=== PATIENT | male | born 1965 | race Caucasian/White ===

== ENCOUNTER 2019-06-27 12:42 | Day surgery (SDC) | payer OTHER ==
[~2019-06-27] VITALS: Ht 182.9 cm; Wt 127.0 kg
[~2019-06-27 12:42] MED LIST: NEXIUM 20MG20 MG PO; ULTRAM 50MG TAB50 MG PO
[2019-06-27] MEDS ORDERED: EPA FISH OIL1 SGL PO (13:00)
[2019-06-27] MEDS ORDERED: VITAMIN D31000 I1 PO (13:01)
[2019-06-27] MEDS ORDERED: PRILOSEC 20MG20 MG PO (13:01)
[2019-06-27] MEDS ORDERED: LOPID 600M600 MG/TAB PO (13:01)
[2019-06-27 13:02] VITALS: BP 140/92; PULSE 59; TEMP 98
[2019-06-27 14:05] VITALS: BP 101/83; PULSE 62; TEMP 97.6
--- NOTE | 2019-06-27 14:05 | NUR ---
The patient arrived back to [facility] at this time. The patient appears alert and oriented and denies any pain or nausea at this time. Post operateive vital signs were started at this time. The patient requests to try some cranberry juice and a muffin at this time. Call light is within reach. Will continue to monitor the patient.
[2019-06-27 14:20] VITALS: BP 110/81; PULSE 59
--- NOTE | 2019-06-27 14:20 | NUR ---
The patient has finished his food and drink and appeared to tolerate both well. The patient denies wanting anything further to eat or drink at this time. Vital signs appear stable. Will continuen to monitor the patient.
[2019-06-27 14:35] VITALS: BP 119/79; PULSE 58
--- NOTE | 2019-06-27 14:37 | NUR ---
The patient is sitting up in the recliner and appears to be resting comfortably at this time. The patient denies wanting anything further to eat or drink at this time. The patient has given his cellphone per his request. Will continue to monitor the patient.
[2019-06-27 14:50] VITALS: BP 120/79; PULSE 51
--- NOTE | 2019-06-27 14:50 | NUR ---
The patient voices a desire to be discharged home. The patient's IV to his right hand was removed and a pressure dressing was applied to the site. The nurse instructed the patient to get dressed and notify the staff when he is ready to be escorted out.
--- NOTE | 2019-06-27 15:05 | NUR ---
Discharge instructions were reviewed with the patient at this time. He verbalized understanding and has no questions for the nurse at this time. The patient has spoke with Dr. Berrios regarding the findings of the procedure and is ready to be escorted out.
--- NOTE | 2019-06-27 15:10 | NUR ---
The patient was escorted out via wheelchair to a private vehicle by GINA Sarmiento. The patient's belongings and discharge paperwork were sent with him. The patient's is present to drive him home.
== END 2019-06-27 15:10 | disposition home or self-care (01) ==
LOC: SDCO 12:42
DX: Z12.11 Encounter for screening for malignant neoplasm of colon (principal); D12.5 Benign neoplasm of sigmoid colon; D12.0 Benign neoplasm of cecum; G47.30 Sleep apnea, unspecified; M19.90 Unspecified osteoarthritis, unspecified site; G89.29 Other chronic pain; Z86.010 Personal history of colon polyps; Z87.891 Personal history of nicotine dependence
CPT/HCPCS: J2704; J7030

== ENCOUNTER 2021-02-16 14:47 | Inpatient (IN) | payer OTHER ==
[~2021-02-16] VITALS: Ht 182.9 cm; Wt 127.0 kg
[~2021-02-16 14:47] MED LIST changes: +EPA FISH OIL1 SGL PO; +LOPID 600M600 MG/TAB PO; +PRILOSEC 20MG20 MG PO; +VITAMIN D31000 I1 PO
[2021-02-16 16:32] LABS: BASO % 0.3 % (0.0-2.0); GRAN # 3.1 (1.4-6.5); GRAN % 83.2 % (42.2-75.2); HEMATOCRIT 48.3 % (42.0-52.0); HEMOGLOBIN 16.7 g/dl (13.5-18.0); LYMPH # 0.5 (1.2-3.4); LYMPH % 12.4 % (20.0-51.0); MEAN CELL VOLUME 90 fl (80.0-100.0); MEAN CORPUSCULAR HEMOGLOBIN 31 pg (27.0-31.0); MEAN CORPUSCULAR HGB CONC 35 g/dl (33.0-37.0); MEAN PLATELET VOLUME 12.1 fl (7.4-10.4); MONO # 0.1 (0.1-0.6); MONO % 3.8 % (1.7-9.3); PLATELET COUNT 93 K/mm3 (130-400); RED BLOOD COUNT 5.38 M/mm3 (4.20-5.60); REDCELL DISTRIBUTION WIDTH-CV 13.7 % (11.5-14.5)
[2021-02-16 16:43] LABS: ALBUMIN 3.9 gm/dL (3.5-5.0); C-REACTIVE PROTEIN 2.7 mg/dL (0.0-0.9); CALCIUM 7.8 mg/dL (8.4-10.2); CREATININE, serum 0.99 (0.66-1.25); POTASSIUM 3.5 mmol/L (3.4-5.0); TOTAL PROTEIN 7.2 gm/dL (6.4-8.2)
[2021-02-16 19:32] LABS: INR 1.1 (0.8-3.0); PROTHROMBIN TIME 12.2 SECONDS (9.7-12.8)
[2021-02-16 19:35] LABS: PARTIAL THROMBOPLASTIN TIME 44.2 SECONDS (26.0-37.0)
[2021-02-16 20:10] VITALS: BP 121/72; PULSE 63; TEMP 98.2
[2021-02-16 21:33] LABS: COLLECTION METHOD CLEAN CATCH
[2021-02-16 21:40] LABS: MUCOUS Present /lpf; PH 5 (5-8); SQUAMOUS EPITHELIAL 0-2 /hpf; URINE APPEARANCE Clear; URINE BACTERIA None Seen /hpf; URINE BILIRUBIN Negative (NEGATIVE); URINE BLOOD Negative (NEGATIVE); URINE COLOR Yellow; URINE GLUCOSE Negative (NEGATIVE); URINE KETONE Negative (NEGATIVE); URINE LEUKOCYTE ESTERASE Negative (NEGATIVE); URINE NITRATE Negative (NEGATIVE); URINE PROTEIN(semi-quant) Negative (NEGATIVE); URINE RBC 0-2 /hpf; URINE UROBILINOGEN Negative (NEGATIVE)
[2021-02-16] MEDS ORDERED: NEXIUM 40MG40 MG PO (22:29)
[2021-02-16] MEDS ORDERED: VITAMIN D31000 I1 PO (22:33)
[2021-02-16] MEDS ORDERED: MOBIC15 MG PO (22:34)
--- NOTE | 2021-02-16 22:42 | NUR ---
PT ARRIVED ON UNIT AROUND 2014
[2021-02-16 22:48] VITALS: BP 113/64; PULSE 83; TEMP 99.3
[2021-02-16 23:16] LABS: ARTERIAL BLD GAS O2 SATURATION 95.8 % (92-100); ARTERIAL BLD GAS TCO2 CT 22.8; ARTERIAL BLOOD GAS BASE EXCESS -1.7 (-2-2); ARTERIAL BLOOD GAS HCO3 21.7 meq/L (22-26); ARTERIAL BLOOD GAS PCO2 33.8 mmHg (35-45); ARTERIAL BLOOD GAS pH 7.43 (7.35-7.45)
--- NOTE | 2021-02-17 01:16 | NUR ---
EVENING MEDICATIONS GIVEN. INTAKE ASSESSMENTS COMPLETED. PT LUNGS SOUND DIMINISHED. PT STATES HIS ONLY PAIN IS A HEADACHE. WILL CONTINUE TO MONITOR.
[2021-02-17 03:42] VITALS: BP 133/83; PULSE 69; TEMP 100.1
--- NOTE | 2021-02-17 05:44 | NUR ---
PT WAS ABLE TO GET SOME REST THROUGHOUT THE NIGHT. DENIES ANY NEEDS AT THIS TIME.
[2021-02-17 08:33] LABS: HEMATOCRIT 44.6 % (42.0-52.0); HEMOGLOBIN 15.6 g/dl (13.5-18.0); MEAN CELL VOLUME 89 fl (80.0-100.0); MEAN CORPUSCULAR HEMOGLOBIN 31 pg (27.0-31.0); MEAN CORPUSCULAR HGB CONC 35 g/dl (33.0-37.0); MEAN PLATELET VOLUME 11.3 fl (7.4-10.4); PLATELET COUNT 87 K/mm3 (130-400); RED BLOOD COUNT 5.02 M/mm3 (4.20-5.60); REDCELL DISTRIBUTION WIDTH-CV 13.4 % (11.5-14.5)
[2021-02-17 08:48] LABS: ALBUMIN 3.5 gm/dL (3.5-5.0); BILIRUBIN,TOTAL 0.7 mg/dL (0.0-1.0); CALCIUM 7.8 mg/dL (8.4-10.2); CREATININE, serum 0.71 (0.66-1.25); POTASSIUM 4.3 mmol/L (3.4-5.0); TOTAL PROTEIN 6.5 gm/dL (6.4-8.2)
[2021-02-17 09:02] VITALS: BP 118/72; PULSE 78; TEMP 102.8
[2021-02-17 09:05] LABS: BAND 17 % (0-10); LYMPHOCYTE 11 % (20.0-51.0); NEUTROPHILS 70 % (42.0-75.2); PLATELET ESTIMATE DECREASED (NORMAL)
--- NOTE | 2021-02-17 10:25 | NUR ---
Patient resting in bed upon entering room. Only complaint was that the food was horrible, "too salty". Patient requested a list of all the medications he is taking. This RN will provide this next time I am in the room.
--- NOTE | 2021-02-17 10:29 | NUR ---
Patient running a fever of 102.8, given PRN tylenol for relief.
--- NOTE | 2021-02-17 12:17 | NUR ---
Sw spoke with the pt via phone due to covid-19. The pt states his preference to return home with his spouse (bonifacio ph#[phone] or [phone]) once medically stable. The pt is independent on all ADLs and uses a CPAP. The pt PCP is the [place] and gets in [facility] [place]. The pt does not have DPOA-HC and he has request one be done. No other needs stated at this time. Sw to await further recommendations and follow up as needed. D/c: Home with spouse
[2021-02-17 12:38] VITALS: BP 109/62; PULSE 68; TEMP 98.6
--- NOTE | 2021-02-17 13:09 | NUR ---
Patient completed a durable power of civil litigation attorney for health care and worker placed a copy on patient's chart.
[2021-02-17 17:57] VITALS: BP 112/71; PULSE 68; TEMP 101
[2021-02-17 20:24] VITALS: BP 114/68; PULSE 63; TEMP 99.6
[2021-02-18] VITALS (7 sets, daily range): BP systolic 90–129; BP diastolic 51–78; PULSE 61–77; TEMP 97.7–103.3
--- NOTE | 2021-02-18 01:03 | NUR ---
PT TEMP. ELEVATED, PT DIAPHORETIC, DENIES CHILLS, MEDICATION ADMINISTERED ORDERED. CALL LIGHT WITHIN REACH.
--- NOTE | 2021-02-18 05:51 | NUR ---
PT HAD UNEVENTFUL NIGHT, PT TEMPERATURE WNL, 02 AT 7.5 HIGH FLOW NC SATURATING 93 TO 94 PERCENT. PT STATES WHEN HE TAKES A DEEP BREATHE OUT IT IS PAIN AROUND THORACIC REGION, PT RATES PAIN 3/10. COUGH REMAINS DRY AND MINIMAL, 0-2 COUGHS PER HOUR, THIS NURSE REVIEWED IMPORTANCE OF POSITIONING, PT VERBALIZES UNDERSTANDING. BS WNL.MEDICATIONS ADMINISTERED ORDERED. PT EXPRESSES NO ADDITONAL NEEDS AT THIS TIME. CALL LIGHT WITHIN REACH.
[2021-02-18 06:59] LABS: ALBUMIN 3.5 gm/dL (3.5-5.0); BILIRUBIN,TOTAL 0.7 mg/dL (0.0-1.0); C-REACTIVE PROTEIN 4.6 mg/dL (0.0-0.9); CALCIUM 7.9 mg/dL (8.4-10.2); CREATININE, serum 0.73 (0.66-1.25); POTASSIUM 3.8 mmol/L (3.4-5.0); TOTAL PROTEIN 6.6 gm/dL (6.4-8.2)
--- NOTE | 2021-02-18 09:03 | NUR ---
Patient running a fever at 103.3, given PRN motrin to attempt to bring it down. Thermometer was placed in the room to keep better track of temps. Patient's potassium came back at 3.8, replaced per protocol.
[2021-02-18 12:22] LABS: ARTERIAL BLD GAS O2 SATURATION 96.3 % (92-100); ARTERIAL BLD GAS TCO2 CT 21.2; ARTERIAL BLOOD GAS BASE EXCESS -1.4 (-2-2); ARTERIAL BLOOD GAS HCO3 20.3 meq/L (22-26); ARTERIAL BLOOD GAS PCO2 27.7 mmHg (35-45); ARTERIAL BLOOD GAS PO2 80.3 mmHg (80-100); ARTERIAL BLOOD GAS pH 7.48 (7.35-7.45)
[2021-02-18 13:12] LABS: HEMATOCRIT 47.7 % (42.0-52.0); HEMOGLOBIN 16.3 g/dl (13.5-18.0); MEAN CELL VOLUME 91 fl (80.0-100.0); MEAN CORPUSCULAR HEMOGLOBIN 31 pg (27.0-31.0); MEAN CORPUSCULAR HGB CONC 34 g/dl (33.0-37.0); MEAN PLATELET VOLUME 11.5 fl (7.4-10.4); PLATELET COUNT 101 K/mm3 (130-400); RED BLOOD COUNT 5.27 M/mm3 (4.20-5.60); REDCELL DISTRIBUTION WIDTH-CV 13.6 % (11.5-14.5)
[2021-02-18 13:43] LABS: BAND 26 % (0-10); EOSINOPHIL 1 % (0-4); LYMPHOCYTE 7 % (20.0-51.0); NEUTROPHILS 62 % (42.0-75.2)
[2021-02-18 13:45] LABS: PLATELET ESTIMATE DECREASED (NORMAL)
--- NOTE | 2021-02-18 15:34 | NUR ---
Patient has done okay today. Telemetry has called multiple times notifying this RN that the patient's leads were off. Patient has been pulling them off to sleep on his stomach, stating, "I just want to sleep on my stomach and not be bothered by the box." Patient was educate on the importance of telemetry. Patient currently on 10L of O2 via [facility].
--- NOTE | 2021-02-18 18:10 | NUR ---
Patient last temp was good, 97.8. Patient not c/o any pain. All questions answered.
[2021-02-19] VITALS (7 sets, daily range): BP systolic 98–128; BP diastolic 63–80; PULSE 50–61; TEMP 97.7–98.5
[2021-02-19 05:21] LABS: ARTERIAL BLD GAS O2 SATURATION 93.5 % (92-100); ARTERIAL BLD GAS TCO2 CT 22.6; ARTERIAL BLOOD GAS HCO3 21.7 meq/L (22-26); ARTERIAL BLOOD GAS PCO2 31.1 mmHg (35-45); ARTERIAL BLOOD GAS PO2 64.9 mmHg (80-100); ARTERIAL BLOOD GAS pH 7.46 (7.35-7.45)
--- NOTE | 2021-02-19 05:25 | NUR ---
PT REMAINED AFEBRILE OVERNIGHT, 02 10L HIGH FLOW NC SATURATING 94-95 PERCENT. PT DENIES PAIN,N,V,D. MEDICATIONS ADMINISTERED ORDERED. PT EXPRESSES NO ADDITIONAL NEEDS AT THIS TIME. CALL LIGHT WITHIN REACH.
[2021-02-19 10:12] LABS: GRAN # 2.7 (1.4-6.5); GRAN % 82.7 % (42.2-75.2); HEMATOCRIT 45.4 % (42.0-52.0); HEMOGLOBIN 15.4 g/dl (13.5-18.0); LYMPH # 0.4 (1.2-3.4); LYMPH % 13.3 % (20.0-51.0); MEAN CELL VOLUME 92 fl (80.0-100.0); MEAN CORPUSCULAR HEMOGLOBIN 31 pg (27.0-31.0); MEAN CORPUSCULAR HGB CONC 34 g/dl (33.0-37.0); MEAN PLATELET VOLUME 10.9 fl (7.4-10.4); MONO # 0.1 (0.1-0.6); MONO % 3.7 % (1.7-9.3); PLATELET COUNT 89 K/mm3 (130-400); RED BLOOD COUNT 4.94 M/mm3 (4.20-5.60); REDCELL DISTRIBUTION WIDTH-CV 13.7 % (11.5-14.5)
[2021-02-19 10:22] LABS: C-REACTIVE PROTEIN 6.6 mg/dL (0.0-0.9); CALCIUM 7.8 mg/dL (8.4-10.2); CREATININE, serum 0.69 (0.66-1.25); POTASSIUM 3.6 mmol/L (3.4-5.0)
[2021-02-20] VITALS: BP 121/80; PULSE 53; TEMP 98
[2021-02-20 04:00] VITALS: BP 113/75; PULSE 56; TEMP 97.8
[2021-02-20 07:35] LABS: BASO % 0.2 % (0.0-2.0); GRAN # 3.7 (1.4-6.5); GRAN % 82.1 % (42.2-75.2); HEMATOCRIT 45.9 % (42.0-52.0); HEMOGLOBIN 15.5 g/dl (13.5-18.0); LYMPH # 0.6 (1.2-3.4); MEAN CELL VOLUME 91 fl (80.0-100.0); MEAN CORPUSCULAR HEMOGLOBIN 31 pg (27.0-31.0); MEAN CORPUSCULAR HGB CONC 34 g/dl (33.0-37.0); MEAN PLATELET VOLUME 11.1 fl (7.4-10.4); MONO # 0.2 (0.1-0.6); PLATELET COUNT 138 K/mm3 (130-400); RED BLOOD COUNT 5.05 M/mm3 (4.20-5.60); REDCELL DISTRIBUTION WIDTH-CV 13.6 % (11.5-14.5)
[2021-02-20 07:48] LABS: ALBUMIN 3.2 gm/dL (3.5-5.0); BILIRUBIN,TOTAL 0.7 mg/dL (0.0-1.0); C-REACTIVE PROTEIN 4.1 mg/dL (0.0-0.9); CALCIUM 8.1 mg/dL (8.4-10.2); CREATININE, serum 0.65 (0.66-1.25); TOTAL PROTEIN 6.2 gm/dL (6.4-8.2)
[2021-02-20 08:30] VITALS: BP 110/74; PULSE 55; TEMP 97.6
[2021-02-20 11:19] VITALS: BP 107/61; PULSE 57; TEMP 97.9
[2021-02-20 16:00] VITALS: BP 120/80; PULSE 62; TEMP 97.9
[2021-02-20 20:00] VITALS: BP 96/54; PULSE 60; TEMP 97.9
--- NOTE | 2021-02-20 23:25 | NUR ---
ALERT AND OX3. PT DENIES SOA, CHEST PAIN OR DIZZY. NO GENERAL PAIN. NOSE IS DRY,WILL GET OCEAN SPRAY. POC DISCUSSED. PM MEDS GIVEN. IV ANTIBOTICS. CALL LIGHT WI REACH. NEEDS MET.
[2021-02-21 05:05] VITALS: BP 111/64; PULSE 50; TEMP 97.9
--- NOTE | 2021-02-21 06:10 | NUR ---
Rested through the night without incident. Needs met.
[2021-02-21 08:39] LABS: BASO % 0.3 % (0.0-2.0); EOS % 0.3 % (0-4.0); GRAN # 2.3 (1.4-6.5); GRAN % 78.1 % (42.2-75.2); HEMATOCRIT 46.3 % (42.0-52.0); HEMOGLOBIN 15.9 g/dl (13.5-18.0); LYMPH # 0.5 (1.2-3.4); LYMPH % 17.3 % (20.0-51.0); MEAN CELL VOLUME 90 fl (80.0-100.0); MEAN CORPUSCULAR HEMOGLOBIN 31 pg (27.0-31.0); MEAN CORPUSCULAR HGB CONC 34 g/dl (33.0-37.0); MEAN PLATELET VOLUME 10.7 fl (7.4-10.4); MONO # 0.1 (0.1-0.6); MONO % 3.7 % (1.7-9.3); PLATELET COUNT 143 K/mm3 (130-400); RED BLOOD COUNT 5.15 M/mm3 (4.20-5.60); REDCELL DISTRIBUTION WIDTH-CV 13.4 % (11.5-14.5)
[2021-02-21 08:51] LABS: ALBUMIN 3.2 gm/dL (3.5-5.0); BILIRUBIN,TOTAL 0.8 mg/dL (0.0-1.0); C-REACTIVE PROTEIN 1.9 mg/dL (0.0-0.9); CALCIUM 7.9 mg/dL (8.4-10.2); CREATININE, serum 0.66 (0.66-1.25); POTASSIUM 3.6 mmol/L (3.4-5.0); TOTAL PROTEIN 6.3 gm/dL (6.4-8.2)
[2021-02-21 09:26] VITALS: BP 93/59; PULSE 63; TEMP 97.7
--- NOTE | 2021-02-21 11:12 | NUR ---
Patient's only concern was why he did not have a CXR this morning. Dr. Aleman answered the patient on this concern. Patient states that he feels much better than he previously had.
[2021-02-21 12:10] VITALS: BP 121/71; PULSE 55; TEMP 97.7
[2021-02-21 17:14] VITALS: BP 115/73; PULSE 59; TEMP 97.5
[2021-02-21 19:38] VITALS: BP 114/66; PULSE 62; TEMP 97.6
[2021-02-22 01:09] VITALS: BP 112/59; PULSE 60; TEMP 97.4
[2021-02-22 03:23] VITALS: BP 113/86; PULSE 56; TEMP 98
--- NOTE | 2021-02-22 07:21 | NUR ---
Report received from GINA Yanez. This RN opened the door to the pt.'s room to introduce self. Pt. is aware and denies needs at this time. Call light and belongings in reach.
[2021-02-22 08:09] VITALS: BP 114/75; PULSE 55; TEMP 97.7
[2021-02-22 12:14] VITALS: BP 107/78; PULSE 70; TEMP 97.8
--- NOTE | 2021-02-22 12:21 | NUR ---
Pt. progressing w/ plan of care. Pt. remains on 8-9L of hi-james nasal cannula, O2 sat 96%. Needs addressed, call light and belongings in reach.
[2021-02-22 15:38] VITALS: BP 114/72; PULSE 59; TEMP 98
--- NOTE | 2021-02-22 16:51 | NUR ---
Three phlebotomists attempted to draw blood today with no success. This RN called Dr. Dasilva to inquire if he wanted this RN to try to get labs on the patient today as well. Dr. Dasilva reports it is OK to skip labs today. The lab was called to make aware Dr. Dasilva is OK with cancelling the labs for today.
--- NOTE | 2021-02-22 17:15 | NUR ---
Pt. is now on 5L at 94%. Pt. denies SOB and he reports he is feeling OK.
[2021-02-22 19:51] VITALS: BP 114/69; PULSE 55; TEMP 97.8
[2021-02-23 00:20] VITALS: BP 126/66; PULSE 47; TEMP 98.7
[2021-02-23 05:15] VITALS: BP 122/77; PULSE 51; TEMP 97.9
--- NOTE | 2021-02-23 06:20 | NUR ---
PT 02 WEANED TO 2L OVERNIGHT 92-94 SATURATION, PT HAD UNEVENTFUL NIGHT, ALL NEEDS MET. CALL LIGHT WITHIN REACH.
[2021-02-23 07:16] LABS: BASO % 0.2 % (0.0-2.0); EOS % 0.4 % (0-4.0); GRAN # 4.4 (1.4-6.5); HEMATOCRIT 44.4 % (42.0-52.0); HEMOGLOBIN 15.1 g/dl (13.5-18.0); LYMPH # 0.8 (1.2-3.4); MEAN CELL VOLUME 91 fl (80.0-100.0); MEAN CORPUSCULAR HEMOGLOBIN 31 pg (27.0-31.0); MEAN CORPUSCULAR HGB CONC 34 g/dl (33.0-37.0); MEAN PLATELET VOLUME 11.1 fl (7.4-10.4); MONO # 0.3 (0.1-0.6); MONO % 4.5 % (1.7-9.3); PLATELET COUNT 164 K/mm3 (130-400); RED BLOOD COUNT 4.87 M/mm3 (4.20-5.60); REDCELL DISTRIBUTION WIDTH-CV 13.1 % (11.5-14.5)
[2021-02-23 07:47] LABS: CALCIUM 8.1 mg/dL (8.4-10.2); CREATININE, serum 0.64 (0.66-1.25); POTASSIUM 3.9 mmol/L (3.4-5.0)
--- NOTE | 2021-02-23 08:05 | NUR ---
SCHEDULED MEDICATIONS GIVEN. SHIFT ASSESSMENT PREFORMED. PATIENT CURRENTLY REQUIRING 2 L OF O2 VIA NASAL CANNULA. PATIENT DENIES ANY PAIN DISCOMFORT, SOA, OR FURTHER NEEDS AT THIS TIME. VOICES A WANT TO GO HOME. VSS. CALL LIGHT IN REACH. DROPLET/CONTACT [facility] IN PLACE.
[2021-02-23 08:26] VITALS: BP 109/71; PULSE 60; TEMP 98.5
[2021-02-23 10:32] LABS: BILIRUBIN,TOTAL 0.6 mg/dL (0.0-1.0); TOTAL PROTEIN 5.7 gm/dL (6.4-8.2)
[2021-02-23 10:56] LABS: BILIRUBIN UNCONJUGATED 0.4 mg/dL (0.0-1.1); BILIRUBIN,DIRECT 0.2 mg/dL (0.0-0.4)
[2021-02-23 12:41] VITALS: BP 99/63; PULSE 59; TEMP 98.6
[2021-02-23 17:07] VITALS: BP 110/64; PULSE 74; TEMP 98.8
--- NOTE | 2021-02-23 19:34 | NUR ---
PATIENT HAS HAD AN OK DAY. CURRENTLY REQURING 2 L OF O2. DENIES ANY PAIN, DISCOMFORT, OR SOA. VSS. CALL LIGHT IN REACH.
[2021-02-23 20:04] VITALS: BP 108/65; PULSE 61; TEMP 97.9
[2021-02-24 00:06] VITALS: BP 125/76; PULSE 52; TEMP 97.8
[2021-02-24 04:00] VITALS: BP 121/81; PULSE 51; TEMP 97.7
--- NOTE | 2021-02-24 04:42 | NUR ---
PT HAD UNEVENTFUL NIGHT. 02 WEANED TO ROOM AIR. PT SATURING 91-92 PERCENT. PT EXPRESSES NO ADDITONAL NEEDS. ALL NEEDS MET.
[2021-02-24 07:52] LABS: HEMATOCRIT 49.3 % (42.0-52.0); HEMOGLOBIN 16.9 g/dl (13.5-18.0); MEAN CELL VOLUME 91 fl (80.0-100.0); MEAN CORPUSCULAR HEMOGLOBIN 31 pg (27.0-31.0); MEAN CORPUSCULAR HGB CONC 34 g/dl (33.0-37.0); MEAN PLATELET VOLUME 10.9 fl (7.4-10.4); PLATELET COUNT 195 K/mm3 (130-400); RED BLOOD COUNT 5.44 M/mm3 (4.20-5.60); REDCELL DISTRIBUTION WIDTH-CV 13.1 % (11.5-14.5)
[2021-02-24 08:01] LABS: CALCIUM 8.6 mg/dL (8.4-10.2); CREATININE, serum 0.66 (0.66-1.25); POTASSIUM 4.2 mmol/L (3.4-5.0)
[2021-02-24 08:32] VITALS: BP 107/70; PULSE 56; TEMP 97.9
[2021-02-24 08:57] LABS: BAND 6 % (0-10); EOSINOPHIL 1 % (0-4); LYMPHOCYTE 15 % (20.0-51.0); NEUTROPHILS 69 % (42.0-75.2); PLATELET ESTIMATE NORMAL (NORMAL)
--- NOTE | 2021-02-24 11:34 | NUR ---
Patient discharged. Ambulated out of the facility with this RN. No complaints prior to discharge. IV and tele removed.
== END 2021-02-24 11:15 | disposition home or self-care (01) | DRG 177 ==
LOC: COL.ER 14:47 → MEDICAL 19:14
PROVIDERS: Emergency Medicine; Internal Medicine; Nurse Practitioner Family; Student in an Organized Health Care Education/Training Program
PROC: XW033E5 Introduction of Remdesivir Anti-infective into Peripheral Vein, Percutaneous Approach, New Technology Group 5 (ICD-10-PCS; principal; 2021-02-17)
DX: U07.1 COVID-19 (principal); J12.82 Pneumonia due to coronavirus disease 2019; J96.01 Acute respiratory failure with hypoxia; E87.1 Hypo-osmolality and hyponatremia; R65.10 Systemic inflammatory response syndrome (SIRS) of non-infectious origin without acute organ dysfunction; F41.9 Anxiety disorder, unspecified; D69.6 Thrombocytopenia, unspecified; R73.9 Hyperglycemia, unspecified; R74.01 Elevation of levels of liver transaminase levels; E87.6 Hypokalemia; M19.90 Unspecified osteoarthritis, unspecified site; Z90.89 Acquired absence of other organs; Z87.891 Personal history of nicotine dependence
CPT/HCPCS: 99223-AI; 99231-AI; 99232-AI; 99233-AI; 99239; A9284; J0696; J1100; J1650; J1815; J7030; J7050; J7120; J8540; Q0249

== ENCOUNTER → 2021-03-03 | Outpatient (CLI) | payer OTHER ==
[~2021-03-03] MED LIST changes: +MOBIC15 MG PO; +NEXIUM 40MG40 MG PO
[2021-03-03 12:54] LABS: ALBUMIN 4.1 gm/dL (3.5-5.0); CALCIUM 9.1 mg/dL (8.4-10.2); CREATININE, serum 0.82 (0.66-1.25); POTASSIUM 4.6 mmol/L (3.4-5.0); TOTAL PROTEIN 7.5 gm/dL (6.4-8.2)
== END ==
LOC: COL.LAB 12:19
PROVIDERS: Student in an Organized Health Care Education/Training Program
DX: U07.1 COVID-19 (principal); R74.8 Abnormal levels of other serum enzymes